=== PATIENT | male | born 1985 | race Caucasian/White ===

== ENCOUNTER 2017-01-17 15:35 | Emergency (ER) | payer BC ==
[~2017-01-17] VITALS: Ht 170.2 cm; Wt 60.0 kg
[~2017-01-17 15:35] MED LIST: DIATR MEGLU/DIATRIZOATE SOLN 120ML ONE
[2017-01-17] MEDS ORDERED: SODIUM CHLORIDE 0.9% 1,000 ML IV ONE (17:30)
[2017-01-17] MEDS ORDERED: ONDANSETRON HCL 4MG/2ML VIAL IV STA (17:30)
[2017-01-17 18:15] LABS: HEMATOCRIT. 47.9 % (42.0-52.0); HEMOGLOBIN. 16.1 g/dL (14.0-18.0); MEAN CORPUSCULAR HGB CONC 33.7 g/dL (31.0-37.0); MEAN CORPUSCULAR VOLUME 89.2 fL (80.0-94.0); MEAN PLATELET VOLUME 8.1 fl (7.4-10.4); PLATELET 277 x1000/uL (130-400); RED BLOOD CELL COUNT 5.36 mill/uL (4.7-6.1); RED CELL DISTRIBUTION WIDTH 12.8 % (11.6-14.6); WHITE BLOOD COUNT 23.2 x1000/uL (4.5-11.0)
[2017-01-17 18:17] LABS: ALBUMIN 4.8 g/dL (3.4-5.0); ANION GAP 14; CALCIUM 9.4 mg/dL (8.5-10.1); CARBON DIOXIDE 25 mEq/L (21-32); CHLORIDE 106 mEq/L (98-107); DIFFERENTIAL COMMENT 1; INDEX HEMOLYSI 1 (1-3); INDEX ICTERIC 2 (1-4); INDEX LIPEMIC 1 (1-3); LIPASE 124 IU/L (73-393); UREA NITROGEN BLOOD 16 mg/dL (7-21)
[2017-01-17 18:21] LABS: ALANINE AMINOTRANSFERASE 17 IU/L (13-61); eGFR > 60 mL/min (>60)
[2017-01-17 18:43] LABS: PLATELET ESTIMATE NORMAL
[2017-01-17] MEDS ORDERED: MORPHINE SULFATE 4 MG/ML CPJ (NOT FOR IM USE) IV ONE (19:00)
[2017-01-17 23:15] VITALS: BP 120/76
== END 2017-01-17 23:15 | disposition home or self-care (01) ==
LOC: ER 15:36
DX: R11.2 Nausea with vomiting, unspecified (principal); R10.84 Generalized abdominal pain; R19.7 Diarrhea, unspecified; F12.10 Cannabis abuse, uncomplicated
CPT/HCPCS: 36415; 74176; 76870; 80053; 83690; 85025; 93976; 96374; 96375; 99285; J2270; J2405; J7030; Z7610; Q9963